=== PATIENT | male | born 1950 | race Caucasian/White ===

== ENCOUNTER 2018-09-07 09:10 | Emergency (ER) | payer MEDICARE ==
[2018-09-07 09:33] VITALS: BP 140/79
--- NOTE | 2018-09-07 10:24 | UC ---
Skin Complaint HPI - HPI Summary HPI Summary: 68-year-old male comes in with chief complaint of a rash. The rashes on his right hand and his right belt line. No said about a week ago after working in the garden. There is some itching on the rash of the hand. Initially he felt an itch at the right belt line but it was minimal. No drainage no pain no vesicles. No fevers no chills feels well otherwise. The rash is not anywhere else on his body. - History of Current Complaint Chief Complaint: UCSkin Time Seen by Provider: 09/07/18 10:11 Stated Complaint: SKIN COMPLAINT Pain Intensity: 0 - Allergy/Home Medications Allergies/Adverse Reactions: Allergies Allergy/AdvReac Type Severity Reaction Status Date / Time Sulfa (Sulfonamide Allergy Hives Verified 09/07/18 09:34 Antibiotics) Home Medications: Home Medications Tamsulosin CAP* [Flomax CAP*] 0.4 mg PO Q48HR 09/07/18 [History Confirmed ] PMH/Surg Hx/FS Hx/Imm Hx Previously Healthy: Yes - BPH - Surgical History Surgical History: Yes Surgery Procedure, Year, and Place: appy, eyes - Family History Known Family History: Positive: Non-Contributory - Social History Alcohol Use: Daily Substance Use Type: None Smoking Status (MU): Never Smoked Tobacco Review of Systems All Other Systems Reviewed And Are Negative: Yes Constitutional: Positive: Negative Skin: Positive: Other - SEE HPI Eyes: Positive: Negative ENT: Positive: Negative Respiratory: Positive: Negative Cardiovascular: Positive: Negative Gastrointestinal: Positive: Negative Motor: Positive: Negative Neurovascular: Positive: Negative Musculoskeletal: Positive: Negative Neurological: Positive: Negative Psychological: Positive: Negative Is Patient Immunocompromised?: No Physical Exam Triage Information Reviewed: Yes Appearance: Well-Appearing, No Pain Distress, Well-Nourished Vital Signs: Initial Vital Signs Temp 99.0 F 09/07/18 09:27 Pulse 69 09/07/18 09:27 Resp 18 09/07/18 09:27 BP 140/79 09/07/18 09:27 Pulse Ox 99 09/07/18 09:27 Vital Signs Reviewed: Yes Eye Exam: Normal Eyes: Positive: Conjunctiva Clear Neck: Positive: Supple Respiratory: Positive: No respiratory distress Musculoskeletal Exam: Normal Musculoskeletal: Positive: Strength Intact, ROM Intact Neurological Exam: Normal Neurological: Positive: Alert, Muscle Tone Normal Psychological Exam: Normal Psychological: Positive: Age Appropriate Behavior Skin: Positive: Other - On the right hand there is some erythema at the base of the right thumb. There is also several punctate to 3 mm slightly raised areas of rash on the lateral aspect of the fifth finger. On the right belt line in a dermatomal distribution there is further punctate erythematous slightly raised 3 -4 mm skin rashes. No vesicles. Course/Dx - Course Course Of Treatment: The right belt line rash is and a dermatomal distribution but it is not painful and it was only itchy very briefly one week ago. At this time it does not have the appearance of shingles. Patient's most worried about scabies. I would expect scabies to be on both hands and circumferential around the belt line and more pruritic. If the rash is the same on the hand and the right belt line it would make shingles even less likely. Most probable cause is a contact dermatitis. Patient's most worried about scabies and therefore I wrote a prescription for Elimite. Also recommended [id number] hydrocortisone to help treat the rash. Reevaluation if worse or any questions or concerns. - Diagnoses Provider Diagnosis: Rash Discharge - Sign-Out/Discharge Documenting (check all that apply): Patient Departure All imaging exams completed and their final reports reviewed: No Studies - Discharge Plan Condition: Stable Disposition: HOME Prescriptions: Permethrin [Elimite] 1 applic TOPICAL SEE INSTRUCTIONS #60 cream..g. Patient Education Materials: Acute Rash (ED) Referrals: Justice Mora MD [Primary Care Provider] - Additional Instructions: FOLLOW UP WITH YOUR DOCTOR IF NOT COMPLETELY IMPROVED. GET REEVALUATED SOONER IF WORSE OR ANY QUESTIONS OR CONCERNS. - Billing Disposition and Condition Condition: STABLE Disposition: Home
== END 2018-09-07 10:29 | disposition home or self-care (01) ==
LOC: UCCORT 09:10
DX: R21 Rash and other nonspecific skin eruption (principal); N40.0 Benign prostatic hyperplasia without lower urinary tract symptoms
CPT/HCPCS: 99212; G0463